=== PATIENT | female | born 1950 | race Caucasian/White ===

== ENCOUNTER → 2018-11-30 | Outpatient (REF) | payer MEDICARE ==
[~2018-11-30] MED LIST: AMLODIPINE5 MG PO; ASPIRIN 81 LOW81 MG PO; ASPIRIN EC81 MG PO; ATORVASTATI80 MG/TAB PO; BUMETANIDE1 MG PO; CARAFATE1 G1 PO; CLONIDINE0.1 MG PO; COREG3.125 MG PO; COUMADIN2.5 MG PO; COUMADIN7.5 MG PO; CYMBALTA60 MG PO; FAMOTIDINE20 M1 PO; FISH OIL1000 MG PO; GABAPENTIN100 MG PO; GABAPENTIN300 MG PO; HYDROCHLORO25 MG/TAB PO; LASIX 20 MG20 MG/TAB PO; LEVEMIR FL100 UNIT/M SC; LEVOTHYROXIN125 MCG PO; LEVOTHYROXIN150 MCG PO; LEVOTHYROXIN75 MCG PO; LISINOPRIL20 MG PO; LISINOPRIL5 MG PO; LOSARTAN POTASS50 MG PO; MELOXICAM15 MG PO; METFORMIN500 MG PO; MIDODRINE HCL5 MG PO; NOVOLIN 70/30 SC; NOVOLIN R U-1001 ML; NOVOLOG MIX100 U/ML SC; POT CHLORIDE8 ME1 PO; PRAVASTATIN40 MG PO; PRILOSEC20 MG PO; SANTYL250 MG/GM TOP; SPIRONOLACT25 MG PO; TUMS ULTRA 101000 MG PO; VISTARIL PO; ZESTRIL10 M1 PO; [UNRECOGNIZED DRUG - CODE] PO; [UNRECOGNIZED DRUG - OTHER] IV
[2018-11-30 16:26] LABS: IMMATURE GRANULOCYTES 0.3 % (0.0-5.0); MEAN CELL VOLUME 105.7 fL CALC (80.0-100.0); MEAN CORPUSCULAR HGB 34.3 pG CALC (26.0-32.0); MEAN CORPUSCULAR HGB CONC 32.4 g/L CALC (32.0-36.0); NEUT# 4.67 thou/uL (2.00-7.15); RED BLOOD COUNT 3.5 mill/uL (4.20-5.60); RED CELL DISTRI WIDTH 14.1 % (11.5-15.5)
[2018-11-30 16:49] LABS: PROTHROMBIN TIME 10.7 SECONDS (9.0-12.5)
[2018-11-30 16:51] LABS: ALBUMIN 3.7 g/dL (3.2-5.0); BILIRUBIN, TOTAL 0.7 mg/dL (0.0-1.4); POTASSIUM 4.2 mmol/l (3.5-5.1); TOTAL PROTEIN 6.8 g/dL (6.3-8.2)
[2018-11-30 17:01] LABS: CREATININE 6.4 mg/dL (0.5-1.0)
== END | disposition home or self-care (01) ==
LOC: LAB 15:39
PROVIDERS: ATTEND Internal Medicine Cardiovascular Disease
DX: I25.119 Atherosclerotic heart disease of native coronary artery with unspecified angina pectoris (principal)

== ENCOUNTER 2018-12-01 02:57 | Observation (INO) | payer MEDICARE ==
[~2018-12-01] VITALS: Ht 170.2 cm; Wt 95.5 kg
[~2018-12-01 02:57] MED LIST changes: -AMLODIPINE5 MG PO; -FAMOTIDINE20 M1 PO; -FISH OIL1000 MG PO; -LOSARTAN POTASS50 MG PO; -TUMS ULTRA 101000 MG PO
--- NOTE | 2018-12-01 03:00 | NUR ---
PATIENT BROUGHT IMMEDIATELY TO TREATMENT AREA VIA WHEELCHAIR. UNDRESSED INTO A GOWN, PLACED ON MONITOR. TRIAGE COMPLETED AT BEDSIDE. PATIENT C/O MID STERNAL CHEST PAIN THAT RADIATES TO HER RIGHT CHEST AT TIMES AND IS WORSE WHEN SHE TAKES A DEEP BREATH. STATES SHE IS SCHEDULED FOR A CATH THIS COMING WEEK BECAUSE OF AN ABNORMAL STRESS TEST. PATIENT DENIES PAIN, DESCRIBES A TIGHTNESS, AND PRESSURE.
[2018-12-01] MEDS ORDERED: TUMS ULTRA 101000 MG PO (03:23)
[2018-12-01] MEDS ORDERED: LOSARTAN POTASS50 MG PO (03:24)
[2018-12-01] MEDS ORDERED: FISH OIL1000 MG PO (03:24)
[2018-12-01] MEDS ORDERED: FAMOTIDINE20 M1 PO (03:25)
[2018-12-01] MEDS ORDERED: AMLODIPINE5 MG PO (03:25)
[2018-12-01 03:44] LABS: HEMATOCRIT 36.8 % (37.0-47.0); HEMOGLOBIN 12.3 g/dl (12.0-16.0); IMMATURE GRANULOCYTES 0.3 % (0.0-5.0); MEAN CELL VOLUME 104.2 fL CALC (80.0-100.0); MEAN CORPUSCULAR HGB 34.8 pG CALC (26.0-32.0); MEAN CORPUSCULAR HGB CONC 33.4 g/L CALC (32.0-36.0); NEUT# 4.11 thou/uL (2.00-7.15); RED BLOOD COUNT 3.53 mill/uL (4.20-5.60); RED CELL DISTRI WIDTH 13.9 % (11.5-15.5)
--- NOTE | 2018-12-01 03:45 | NUR ---
PATIENT RESTING ON STRETCHER. DENIES ANY CHEST PAIN AT PRESENT. AWARE OF PENDING RESULTS AND PLAN OF CARE. FAMILY AT [facility].
[2018-12-01 03:51] LABS: ALBUMIN 3.5 g/dL (3.2-5.0); BILIRUBIN, TOTAL 0.6 mg/dL (0.0-1.4); POTASSIUM 3.9 mmol/l (3.5-5.1); TOTAL PROTEIN 6.5 g/dL (6.3-8.2)
[2018-12-01 03:52] LABS: CREATININE 6.9 mg/dL (0.5-1.0)
--- NOTE | 2018-12-01 04:18 | NUR ---
PATIENT AWARE OF NEED FOR URINE SAMPLE. STATES SHE DOES MAKE URINE WHILE ON DIALYSIS, HOWEVER HAS NO URGE TO GO AT THIS TIME. MD AWARE.
--- NOTE | 2018-12-01 04:30 | NUR ---
SPOKE WITH DR RESENDEZ. PATIENT TO BE ADMITTED
--- NOTE | 2018-12-01 04:53 | NUR ---
REPORT ATTEMPTED, NURSE TO CALL BACK.
--- NOTE | 2018-12-01 05:04 | NUR ---
REPORT GIVEN TO VASQUEZ. PATIENT READIED FOR TRANSPORT TO FLOOR.
--- NOTE | 2018-12-01 05:10 | NUR ---
PATIENT TO THE FLOOR ONT TELEMETRY, WITH RN, VIA STRETCHER. FAMILY FOLLOWED TO FLOOR.
--- NOTE | 2018-12-01 05:18 | NUR ---
PT ARIVED TO THE FLOOR VIA STRETCHER ACCOMPANIED BY ED STAFF AND FAMILY. PT ALERT AND ORIENTED. PT AMULATED FROM STRETCHER TO BED X2 ASSIST, WEAK. PT DENIES ANY PAIN OR DISCOMFORT AT THIS TIME. RESPIRATIONS EVEN AND UNLABORED ON RA, LUNGS SOUND CLEAR. PEDAL PULSES WEAK. TELE MONITOR IN PLACE. IV # 22 LFA, PATENT, APPEARS HEALTHY. AV FISSULA UPPER RIGHT ARM POSITIVE BRUIT POSITIVE THRILL. PT ORIENTED TO ROOM AND CALL [facility] SYSTEM. PT ENCOURAGED TO USE CALL [facility] IF NEEDS SHOULD ARISE. SAFETY PRECAUTIONS IN PLACE. WILL CONTINUE TO MONITOR.
--- NOTE | 2018-12-01 05:25 | NUR ---
PATIENT APPEARS SLEEPING AT THIS TIME. EYES CLOSED AND HOB ELEVATED. TELE MONITOR IN PLACE. CALL LIGHT IN REACH. WILL CONT TO MONITOR.
[2018-12-01 05:30] VITALS: BP 161/73
--- NOTE | 2018-12-01 05:36 | NUR ---
PATIENT RESTING IN BED AND STATES THAT SHE IS SCHEDULED FOR PICK-UP FOR H/D TREATMENT THIS MORNING AT [facility] IN [place]-US[place]ALLY GETS PICKED UP AT ABOUT 6:30. NURA CALLED AT [phone] AND SPOKE TO DALIA INMANING PATIENT ADMISSION TO [facility]. WILL CONT TO MONITOR.
[2018-12-01 07:36] VITALS: BP 149/87
--- NOTE | 2018-12-01 08:15 | NUR ---
DR. RESENDEZ AT BEDSIDE DISCUSS POC. WITH PT AND DAUGHTER. ASSESSMENT DONE. PT IS A&O X3. PT DENIES ANY PAIN AT THIS TIME. FISSULA +BRUIT AND + THRILL. RESPS EVEN AND UNLABORED. TELE IN PLACE. SAFETY PRECAUTIONS REINFORCED AND CALL LIGHT IN REACH.
[2018-12-01] MEDS ORDERED: GABAPENTIN100 MG PO (10:38)
[2018-12-01] MEDS ORDERED: SPIRONOLACT25 MG PO (10:38)
[2018-12-01] MEDS ORDERED: [UNRECOGNIZED DRUG - OTHER] IV (10:38)
[2018-12-01] MEDS ORDERED: BUMETANIDE1 MG PO (10:39)
[2018-12-01 11:52] VITALS: BP 139/72
--- NOTE | 2018-12-01 11:57 | NUR ---
Discharge instructions given. Patient verbalizes understanding of same. Discharged in stable condition via Wheelchair to Home with family. All belongings sent with pt.
== END 2018-12-01 11:57 | disposition home or self-care (01) ==
LOC: ED 02:57 → ED-I 04:21 → ED 04:28 → MS2 04:29
PROVIDERS: Emergency Medicine; ADMIT Internal Medicine Geriatric Medicine; ATTEND Internal Medicine Geriatric Medicine
DX: R07.9 Chest pain, unspecified (principal); I25.10 Atherosclerotic heart disease of native coronary artery without angina pectoris; I12.0 Hypertensive chronic kidney disease with stage 5 chronic kidney disease or end stage renal disease; N18.6 End stage renal disease; F32.9 Major depressive disorder, single episode, unspecified; F41.8 Other specified anxiety disorders; R94.31 Abnormal electrocardiogram [ECG] [EKG]; Z99.2 Dependence on renal dialysis; Z95.1 Presence of aortocoronary bypass graft; R06.02 Shortness of breath
CPT/HCPCS: G0378

== ENCOUNTER 2019-06-25 08:24 | Emergency (ER) | payer MEDICARE ==
[~2019-06-25] VITALS: Ht 170.2 cm; Wt 100.0 kg
[~2019-06-25 08:24] MED LIST changes: +AMLODIPINE5 MG PO; +FAMOTIDINE20 M1 PO; +FISH OIL1000 MG PO; +LOSARTAN POTASS50 MG PO; +TUMS ULTRA 101000 MG PO
[2019-06-25 09:54] LABS: IMMATURE GRANULOCYTES 0.5 % (0.0-5.0); MEAN CELL VOLUME 102.7 fL CALC (80.0-100.0); MEAN CORPUSCULAR HGB 32.7 pG CALC (26.0-32.0); MEAN CORPUSCULAR HGB CONC 31.9 g/L CALC (32.0-36.0); NEUT# 3.89 thou/uL (2.00-7.15); RED BLOOD COUNT 2.63 mill/uL (4.20-5.60); RED CELL DISTRI WIDTH 15.9 % (11.5-15.5)
[2019-06-25 10:10] LABS: ACT PARTIAL THROMBO TIME 25.5 SECONDS (20.0-32.5); INTERNATIONAL NORMALIZED RATIO 1.1 RATIO (0.7-1.3); PROTHROMBIN TIME 11.5 SECONDS (9.0-12.5)
[2019-06-25 10:12] LABS: BILIRUBIN, TOTAL 0.9 mg/dL (0.0-1.4); HEMOGLOBIN 8.6 g/dl (12.0-16.0); POTASSIUM 3.9 mmol/l (3.5-5.1); TOTAL PROTEIN 6.7 g/dL (6.3-8.2)
[2019-06-25 10:13] LABS: ALBUMIN 2.5 g/dL (3.2-5.0); CREATININE 3.3 mg/dL (0.5-1.0)
[2019-06-25] MEDS ORDERED: SERTRALINE50 MG PO (10:54)
[2019-06-25 13:30] VITALS: BP 134/65
== END 2019-06-25 13:30 ==
LOC: ED 08:24
DX: R42 Dizziness and giddiness (principal); R55 Syncope and collapse; R79.89 Other specified abnormal findings of blood chemistry; I48.91 Unspecified atrial fibrillation; D64.9 Anemia, unspecified; I12.0 Hypertensive chronic kidney disease with stage 5 chronic kidney disease or end stage renal disease; N18.6 End stage renal disease; I25.10 Atherosclerotic heart disease of native coronary artery without angina pectoris; Z99.2 Dependence on renal dialysis; Z95.1 Presence of aortocoronary bypass graft

== ENCOUNTER 2020-03-15 13:49 | Emergency (ER) | payer MEDICARE ==
[~2020-03-15] VITALS: Ht 170.2 cm; Wt 80.0 kg
[~2020-03-15 13:49] MED LIST changes: +SERTRALINE50 MG PO
[2020-03-15] MEDS ORDERED: NORVASC5 M1 PO (14:11)
[2020-03-15 14:28] LABS: IMMATURE GRANULOCYTES 0.3 % (0.0-5.0); MEAN CELL VOLUME 110.9 fL CALC (80.0-100.0); MEAN CORPUSCULAR HGB 33.9 pG CALC (26.0-32.0); MEAN CORPUSCULAR HGB CONC 30.6 g/dL CAL (32.0-36.0); NEUT# 3.29 thou/uL (2.00-7.15); RED BLOOD COUNT 2.21 mill/uL (4.20-5.60); RED CELL DISTRI WIDTH 14.6 % (11.5-15.5)
[2020-03-15 14:39] LABS: HEMATOCRIT 24.5 % (37.0-47.0); HEMOGLOBIN 7.5 g/dl (12.0-16.0)
[2020-03-15 14:45] LABS: INTERNATIONAL NORMALIZED RATIO 1.1 RATIO (0.7-1.3); PROTHROMBIN TIME 11.4 SECONDS (9.0-12.5)
[2020-03-15 14:46] LABS: ALBUMIN 2.6 g/dL (3.2-5.0); ALKALINE PHOSPHATASE 159 u/l (38-126); ANION GAP 9 (6-22 (CALC)); BILIRUBIN, TOTAL 0.6 mg/dL (0.0-1.4); BUN 27 mg/dL (8-23); BUN/CREATININE RATIO 8 (12-20 (CALC)); CARBON DIOXIDE 26 mmol/l (22-30); CHLORIDE 103 mmol/l (95-108); CREATININE 3.4 mg/dL (0.5-1.0); GFR 13 ML/MIN (>=60 (CALC)); GFR FOR AFR.AMER. 16 ML/MIN (>=60 (CALC)); LIPASE 661 u/l (23-300); POTASSIUM 4.3 mmol/l (3.5-5.1); SGOT/AST 25 u/l (9-36); SODIUM 134 mmol/l (137-146); TOTAL PROTEIN 5.8 g/dL (6.3-8.2)
[2020-03-15 14:47] LABS: AMYLASE < 30 u/l (30-110)
[2020-03-15 18:20] VITALS: BP 170/76
== END 2020-03-15 18:20 ==
LOC: ED 13:49
PROVIDERS: Emergency Medicine
DX: J18.9 Pneumonia, unspecified organism (principal); K50.10 Crohn's disease of large intestine without complications; R60.1 Generalized edema; D64.9 Anemia, unspecified; I12.0 Hypertensive chronic kidney disease with stage 5 chronic kidney disease or end stage renal disease; N18.6 End stage renal disease; I25.10 Atherosclerotic heart disease of native coronary artery without angina pectoris; Z99.2 Dependence on renal dialysis; Z95.1 Presence of aortocoronary bypass graft; Z20.828 Contact with and (suspected) exposure to other viral communicable diseases
CPT/HCPCS: J1956

== ENCOUNTER 2020-05-01 19:54 | Emergency (ER) | payer MEDICARE ==
[~2020-05-01] VITALS: Ht 170.2 cm; Wt 91.0 kg
[~2020-05-01 19:54] MED LIST changes: +NORVASC5 M1 PO
[2020-05-01] MEDS ORDERED: LEVOTHYROXIN125 MCG PO (20:11)
[2020-05-01 20:36] LABS: HEMATOCRIT 22.2 % (37.0-47.0); IMMATURE GRANULOCYTES 1.2 % (0.0-5.0); MEAN CORPUSCULAR HGB 30.7 pG CALC (26.0-32.0); MEAN CORPUSCULAR HGB CONC 29.7 g/dL CAL (32.0-36.0); NEUT# 15.53 thou/uL (2.00-7.15); RED BLOOD COUNT 2.15 mill/uL (4.20-5.60); RED CELL DISTRI WIDTH 15.3 % (11.5-15.5)
[2020-05-01 20:38] LABS: HEMOGLOBIN 6.6 g/dl (12.0-16.0); MEAN CELL VOLUME 103.3 fL CALC (80.0-100.0)
[2020-05-01 20:52] LABS: ALBUMIN 2.6 g/dL (3.2-5.0); ALKALINE PHOSPHATASE 158 u/l (38-126); ANION GAP 10 (6-22 (CALC)); BUN 30 mg/dL (8-23); BUN/CREATININE RATIO 8 (12-20 (CALC)); CARBON DIOXIDE 26 mmol/l (22-30); CHLORIDE 101 mmol/l (95-108); CREATININE 3.7 mg/dL (0.5-1.0); GFR 12 ML/MIN (>=60 (CALC)); GFR FOR AFR.AMER. 15 ML/MIN (>=60 (CALC)); LIPASE 34 u/l (23-300); POTASSIUM 3.7 mmol/l (3.5-5.1); SGOT/AST 22 u/l (9-36); SODIUM 134 mmol/l (137-146); TOTAL PROTEIN 5.6 g/dL (6.3-8.2)
[2020-05-01 20:53] LABS: AMYLASE < 30 u/l (30-110); BILIRUBIN, TOTAL 0.9 mg/dL (0.0-1.4)
[2020-05-01 20:56] LABS: ACT PARTIAL THROMBO TIME 28.6 SECONDS (20.0-32.5); INTERNATIONAL NORMALIZED RATIO 1.1 RATIO (0.7-1.3); PROTHROMBIN TIME 11.2 SECONDS (9.0-12.5)
[2020-05-01 22:40] VITALS: BP 87/48
[2020-05-01 23:18] VITALS: BP 87/48
== END 2020-05-01 23:18 ==
LOC: ED 19:54
PROC: 30233N1 Transfusion of Nonautologous Red Blood Cells into Peripheral Vein, Percutaneous Approach (ICD-10-PCS; principal; 2020-05-01)
DX: A41.9 Sepsis, unspecified organism (principal); L03.116 Cellulitis of left lower limb; L03.115 Cellulitis of right lower limb; R79.89 Other specified abnormal findings of blood chemistry; D64.9 Anemia, unspecified; I87.2 Venous insufficiency (chronic) (peripheral); I12.0 Hypertensive chronic kidney disease with stage 5 chronic kidney disease or end stage renal disease; N18.6 End stage renal disease; I25.10 Atherosclerotic heart disease of native coronary artery without angina pectoris; B95.62 Methicillin resistant Staphylococcus aureus infection as the cause of diseases classified elsewhere; Z99.2 Dependence on renal dialysis; Z95.1 Presence of aortocoronary bypass graft; Z20.828 Contact with and (suspected) exposure to other viral communicable diseases
CPT/HCPCS: P9016

== ENCOUNTER 2020-09-09 18:42 | Emergency (ER) | payer MEDICARE ==
[~2020-09-09] VITALS: Ht 167.6 cm; Wt 85.0 kg
[2020-09-09] MEDS ORDERED: PEPCID20 MG PO (21:46)
[2020-09-09] MEDS ORDERED: VITAMIN D32000 UNI2 PO (21:49)
[2020-09-09] MEDS ORDERED: Levaquin PO (22:27)
[2020-09-09 22:42] LABS: IMMATURE GRANULOCYTES 0.2 % (0.0-5.0); MEAN CELL VOLUME 99.1 fL CALC (80.0-100.0); MEAN CORPUSCULAR HGB 30.9 pG CALC (26.0-32.0); MEAN CORPUSCULAR HGB CONC 31.1 g/dL CAL (32.0-36.0); NEUT# 8.63 thou/uL (2.00-7.15); RED BLOOD COUNT 3.37 mill/uL (4.20-5.60); RED CELL DISTRI WIDTH 15.8 % (11.5-15.5)
[2020-09-09 22:52] LABS: HEMATOCRIT 33.4 % (37.0-47.0); HEMOGLOBIN 10.4 g/dl (12.0-16.0)
[2020-09-09] MEDS ORDERED: TAM75CAP PO (23:10)
[2020-09-09 23:24] LABS: CREATININE 4.3 mg/dL (0.5-1.0); TOTAL PROTEIN 6.3 g/dL (6.3-8.2)
[2020-09-09 23:35] LABS: BILIRUBIN, TOTAL 1.3 mg/dL (0.0-1.4); POTASSIUM 4.5 mmol/l (3.5-5.1)
[2020-09-10 01:08] VITALS: BP 176/74
--- NOTE | 2020-09-11 09:08 | NUR ---
Notified patient of positive Covid results. Patient denies any symptoms at this time. Advised her to quarantine until contacted by the [facility] with further instructions. Advised her to return to the ED with any difficulty breathing or other urgent needs. patient verbalized understanding.
== END 2020-09-10 01:08 | disposition left against medical advice (07) ==
LOC: ED 18:42
PROVIDERS: Emergency Medicine
DX: U07.1 COVID-19 (principal); J12.89 Other viral pneumonia; N18.6 End stage renal disease; I12.0 Hypertensive chronic kidney disease with stage 5 chronic kidney disease or end stage renal disease; I25.10 Atherosclerotic heart disease of native coronary artery without angina pectoris; Z99.2 Dependence on renal dialysis; Z95.1 Presence of aortocoronary bypass graft

== ENCOUNTER 2020-09-24 11:53 | Emergency (ER) | payer MEDICARE ==
[~2020-09-24] VITALS: Ht 167.6 cm; Wt 75.0 kg
[~2020-09-24 11:53] MED LIST changes: +Levaquin PO; +PEPCID20 MG PO; +TAM75CAP PO; +VITAMIN D32000 UNI2 PO
[2020-09-24 13:12] LABS: HEMATOCRIT 36.3 % (37.0-47.0); HEMOGLOBIN 11.1 g/dl (12.0-16.0); IMMATURE GRANULOCYTES 0.3 % (0.0-5.0); MEAN CELL VOLUME 101.7 fL CALC (80.0-100.0); MEAN CORPUSCULAR HGB 31.1 pG CALC (26.0-32.0); MEAN CORPUSCULAR HGB CONC 30.6 g/dL CAL (32.0-36.0); NEUT# 4.63 thou/uL (2.00-7.15); RED BLOOD COUNT 3.57 mill/uL (4.20-5.60); RED CELL DISTRI WIDTH 16.4 % (11.5-15.5)
[2020-09-24 13:24] LABS: ALBUMIN 2.8 g/dL (3.2-5.0); BILIRUBIN, TOTAL 1.3 mg/dL (0.0-1.4); POTASSIUM 3.7 mmol/l (3.5-5.1)
[2020-09-24 13:25] LABS: CREATININE 2.3 mg/dL (0.5-1.0)
[2020-09-24 17:20] VITALS: BP 126/79
== END 2020-09-24 17:20 | disposition left against medical advice (07) ==
LOC: ED 11:53
PROVIDERS: Emergency Medicine
DX: R79.89 Other specified abnormal findings of blood chemistry (principal); I12.0 Hypertensive chronic kidney disease with stage 5 chronic kidney disease or end stage renal disease; N18.6 End stage renal disease; I25.10 Atherosclerotic heart disease of native coronary artery without angina pectoris; Z99.2 Dependence on renal dialysis; Z91.19 Patient's noncompliance with other medical treatment and regimen

== ENCOUNTER 2020-12-10 14:56 | Emergency (ER) | payer MEDICARE ==
[~2020-12-10] VITALS: Ht 167.6 cm; Wt 82.0 kg
[2020-12-10] MEDS ORDERED: D31000 UNIT PO (15:35)
[2020-12-10 16:21] LABS: HEMATOCRIT 31.5 % (37.0-47.0); HEMOGLOBIN 9.8 g/dl (12.0-16.0); IMMATURE GRANULOCYTES 0.4 % (0.0-5.0); MEAN CELL VOLUME 102.6 fL CALC (80.0-100.0); MEAN CORPUSCULAR HGB 31.9 pG CALC (26.0-32.0); MEAN CORPUSCULAR HGB CONC 31.1 g/dL CAL (32.0-36.0); NEUT# 4.56 thou/uL (2.00-7.15); RED BLOOD COUNT 3.07 mill/uL (4.20-5.60); RED CELL DISTRI WIDTH 15.3 % (11.5-15.5)
[2020-12-10 16:38] LABS: ALBUMIN 3.3 g/dL (3.2-5.0); BILIRUBIN, TOTAL 0.8 mg/dL (0.0-1.4); TOTAL PROTEIN 6.7 g/dL (6.3-8.2)
[2020-12-10 16:52] LABS: CREATININE 3.6 mg/dL (0.5-1.0); POTASSIUM 4.7 mmol/l (3.5-5.1)
[2020-12-10 18:12] VITALS: BP 156/73
== END 2020-12-10 18:32 | disposition home or self-care (01) ==
LOC: ED 14:56
PROVIDERS: Family Medicine
DX: J06.9 Acute upper respiratory infection, unspecified (principal); I12.0 Hypertensive chronic kidney disease with stage 5 chronic kidney disease or end stage renal disease; N18.6 End stage renal disease; I25.10 Atherosclerotic heart disease of native coronary artery without angina pectoris; Z95.1 Presence of aortocoronary bypass graft; Z99.2 Dependence on renal dialysis; Z20.822 Contact with and (suspected) exposure to COVID-19

== ENCOUNTER 2021-05-27 14:21 | Emergency (ER) | payer MEDICARE ==
[~2021-05-27] VITALS: Ht 167.6 cm; Wt 80.0 kg
[~2021-05-27 14:21] MED LIST changes: +D31000 UNIT PO
[2021-05-27 18:27] LABS: HEMATOCRIT 32.3 % (37.0-47.0); IMMATURE GRANULOCYTES 0.2 % (0.0-5.0); MEAN CELL VOLUME 102.9 fL CALC (80.0-100.0); MEAN CORPUSCULAR HGB 31.8 pG CALC (26.0-32.0); NEUT# 3.12 thou/uL (2.00-7.15); RED BLOOD COUNT 3.14 mill/uL (4.20-5.60); RED CELL DISTRI WIDTH 17.7 % (11.5-15.5)
[2021-05-27 18:51] LABS: ALBUMIN 2.7 g/dL (3.2-5.0); CREATININE 3.3 mg/dL (0.5-1.0); TOTAL PROTEIN 6.3 g/dL (6.3-8.2)
[2021-05-27 18:52] LABS: BILIRUBIN, TOTAL 1.6 mg/dL (0.0-1.4)
[2021-05-27 20:08] VITALS: BP 167/70
[2021-07-24] MEDS ORDERED: AUGMENTIN500TAB PO (04:44)
== END 2021-05-27 20:37 | disposition home or self-care (01) ==
LOC: ED 14:21
DX: R51.9 Headache, unspecified (principal); R09.81 Nasal congestion; I12.0 Hypertensive chronic kidney disease with stage 5 chronic kidney disease or end stage renal disease; N18.6 End stage renal disease; I25.10 Atherosclerotic heart disease of native coronary artery without angina pectoris; M19.90 Unspecified osteoarthritis, unspecified site; Z99.2 Dependence on renal dialysis

== ENCOUNTER 2021-11-20 10:57 | Inpatient (IN) | payer MEDICARE ==
[2021-11-20] VITALS (10 sets, daily range): BP systolic 100–132; BP diastolic 46–67
[~2021-11-20] VITALS: Ht 167.6 cm; Wt 85.0 kg
[~2021-11-20 10:57] MED LIST changes: +AUGMENTIN500TAB PO; +LEVOTHYROXIN137 MCG PO
--- NOTE | 2021-11-20 11:15 | NUR ---
PATIENT TO ROOM VIA WHEELCHAIR.
[2021-11-20 12:04] LABS: IMMATURE GRANULOCYTES 0.7 % (0.0-5.0); MEAN CELL VOLUME 105.8 fL CALC (80.0-100.0); MEAN CORPUSCULAR HGB 32.8 pG CALC (26.0-32.0); NEUT# 5.09 thou/uL (2.00-7.15); RED BLOOD COUNT 1.89 mill/uL (4.20-5.60); RED CELL DISTRI WIDTH 19.9 % (11.5-15.5)
[2021-11-20 12:05] LABS: HEMOGLOBIN 6.2 g/dl (12.0-16.0)
[2021-11-20 12:27] LABS: ALBUMIN 2.4 g/dL (3.2-5.0); ALKALINE PHOSPHATASE 135 u/l (38-126); BILIRUBIN, TOTAL 1.2 mg/dL (0.0-1.4); BUN 12 mg/dL (8-23); CHLORIDE 102 mmol/l (95-108); POTASSIUM 4.3 mmol/l (3.5-5.1); SODIUM 131 mmol/l (137-146)
[2021-11-20 12:28] LABS: ANION GAP 8 (6-22 (CALC)); BUN/CREATININE RATIO 6 (12-20 (CALC)); CARBON DIOXIDE 25 mmol/l (22-30); CREATININE 2.1 mg/dL (0.5-1.0); GFR 23 ML/MIN (>=60 (CALC)); GFR FOR AFR.AMER. 28 ML/MIN (>=60 (CALC)); SGOT/AST 40 u/l (9-36)
--- NOTE | 2021-11-20 15:03 | NUR ---
PT REFUSING CATH AT THIS TIME
[2021-11-20 18:30] LABS: HEMATOCRIT 21.5 % (37.0-47.0); MEAN CELL VOLUME 100.9 fL CALC (80.0-100.0); MEAN CORPUSCULAR HGB 31.9 pG CALC (26.0-32.0); MEAN CORPUSCULAR HGB CONC 31.6 g/dL CAL (32.0-36.0); RED BLOOD COUNT 2.13 mill/uL (4.20-5.60); RED CELL DISTRI WIDTH 21.2 % (11.5-15.5)
[2021-11-20 18:32] LABS: HEMOGLOBIN 6.8 g/dl (12.0-16.0)
--- NOTE | 2021-11-20 19:54 | NUR ---
PT RESTING COMFORTABLY RECIEVING IV MEDICATIONS, WILL CONT TO MONITOR.
--- NOTE | 2021-11-20 20:28 | NUR ---
REPORT RECEIVED FROM Ann-Marie VALENCIA RN PENDING 1 UNIT OF PRBC, PT HAS ONE #22 IN HAND WHICH CURRENTLY HAS VANCOMYCIN THROUGH IT. 2ND UNIT OF PRBC PENDING, PER REPORT ATTEMPT AT 2ND SITE WHILE WE SPEAK.
--- NOTE | 2021-11-20 20:31 | NUR ---
REPORT CALLED TO MED/SURG.
--- NOTE | 2021-11-20 20:50 | NUR ---
PT RECEIVED FROM ED TO ROOM 270. ARRIVES VIA WC ACCOMPANIED BY BRAN GARG. PT AMBULATORY TO BED. GAIT UNSTEADY. PT DENIES PAIN AT THIS TIME. ORIENTED TO UNIT, ROOM, CALL [facility], LIGHTS, TV. ICE WATER PROVIDED. CALL [facility] WITHIN REACH. AGREES TO CALL PRN.
--- NOTE | 2021-11-20 21:01 | NUR ---
PT OFF UNIT TO MEDR VIA STRETCHER BY ED STAFF.
[2021-11-21 00:49] LABS: HEMATOCRIT 26.4 % (37.0-47.0); HEMOGLOBIN 8.6 g/dl (12.0-16.0)
[2021-11-21 01:03] VITALS: BP 112/40
--- NOTE | 2021-11-21 03:56 | NUR ---
PT LAYING IN BED WITH EYES CLOSED, APPEARS TO BE SLEEPING, APPEARS COMFORTABLE AND IN NO DISTRESS. RESPIRATIONS REGULAR AND UNLABORED. ITEMS REMAIN WITHIN REACH, CALL [facility] REMAINS WITHIN REACH. BED REMAINS LOCKED AND IN LOW POSITION WITH BEDRAILS UP X2. WILL CONTINUE TO MONITOR.
[2021-11-21 04:22] VITALS: BP 146/48
[2021-11-21 05:55] LABS: HEMATOCRIT 25.5 % (37.0-47.0); HEMOGLOBIN 8.2 g/dl (12.0-16.0); MEAN CELL VOLUME 98.5 fL CALC (80.0-100.0); MEAN CORPUSCULAR HGB 31.7 pG CALC (26.0-32.0); MEAN CORPUSCULAR HGB CONC 32.2 g/dL CAL (32.0-36.0); RED BLOOD COUNT 2.59 mill/uL (4.20-5.60); RED CELL DISTRI WIDTH 21.8 % (11.5-15.5)
[2021-11-21 06:13] LABS: CREATININE 2.9 mg/dL (0.5-1.0)
[2021-11-21 06:23] LABS: ALBUMIN 1.9 g/dL (3.2-5.0)
[2021-11-21 08:33] VITALS: BP 146/48
--- NOTE | 2021-11-21 10:43 | NUR ---
RECEIVE THIS MORNING REPORT FROM ASIF GARG. PATIENT STABLE, NO REPORT PAIN OR DISCONFORT AT THIS TIME. EDUCATED ABOUT PLAN OF CARE FOR TODAY, MEDICATIONS AND CLINIAL MANAGEMENT. PATIENT REPORT UNDERSTAND. JOEY ROUND IS DONE
[2021-11-21 11:20] VITALS: BP 136/60
[2021-11-21 15:27] VITALS: BP 162/72
--- NOTE | 2021-11-21 15:43 | NUR ---
PATIENT STABLE AT THIS TIME. NO REPORT PAIN.JOEY POOLE IS COMPLETE.
[2021-11-21 19:00] VITALS: BP 118/52
--- NOTE | 2021-11-21 20:15 | NUR ---
PT IN BED; A&O X3. EVEN AND UNLABORED RESPIRATIONS; CLEAR LUNG SOUNDS UPON AUSCULTATION. TELEMETRY IN PLACE. ACTIVE BOWEL SOUNDS X4 QUADRANTS. DRESSING ON BILATERAL EXTREMITIES DRY, CLEAN, AND INTACT. NO DISTRESS NOTED. PT DENIES PAIN AT THIS MOMENT. PT INFORMED ABOUT NPO ORDER AFTER MIDNIGHT; PT SHOWED UNDESTANDING. SAFETY PRECAUTIONS IN PLACE. CALL LIGHT WITHIN REACH.
--- NOTE | 2021-11-21 22:52 | NUR ---
BOWEL PREP ABOUT HALF WAY COMPLETED, NO BM SINCE ADMINISTERING PREP. PT ENCOURAGED TO DRINK BOWEL PREP. PT STATES " THERES NO WAY I CAN DRINK THAT, I AM SO FULL." DR ELAINE INFORMED, NO NEW ORDERS OBTAINED. MUSEUM CURATOR CONTINUES TO ENCOURAGE PT .
[2021-11-22] VITALS: BP 123/47
--- NOTE | 2021-11-22 | NUR ---
PT ENCOURAGED TO DRINK PREP; PT STATES SHE'S FULL BUT SHE WILL TRY. NO BOWEL MOVEMENTS. TELEMETRY IN PLACE. SAFETY PRECAUTIONS IN PLACE. CALL LIGHT WITHIN REACH.
[2021-11-22 04:00] VITALS: BP 115/34
--- NOTE | 2021-11-22 04:30 | NUR ---
PT IN BED. NO DISTRESS OR PAIN NOTED. PT UNABLE TO FINISH PREP. PT HELPED WITH HEATHER CARE BY AIDES. SAFETY PRECAUTIONS AND TELEMETRY IN PLACE. CALL LIGHT WITHIN REACH.
[2021-11-22 04:47] LABS: HEMATOCRIT 24.1 % (37.0-47.0); HEMOGLOBIN 7.7 g/dl (12.0-16.0); MEAN CELL VOLUME 99.6 fL CALC (80.0-100.0); MEAN CORPUSCULAR HGB 31.8 pG CALC (26.0-32.0); RED BLOOD COUNT 2.42 mill/uL (4.20-5.60); RED CELL DISTRI WIDTH 21.6 % (11.5-15.5)
[2021-11-22 05:13] LABS: CREATININE 3.6 mg/dL (0.5-1.0)
[2021-11-22 05:15] LABS: POTASSIUM 4.3 mmol/l (3.5-5.1)
--- NOTE | 2021-11-22 05:30 | NUR ---
PT INCONT OF BOWEL AT THIS TIME. BM BLACK, STOOL SAMPLE COLLECTED. PT UNABLE TO TOLERATE BOWEL PREP WELL. OR AND DR ELAINE TO BE INFORMED. SAMPLE COLLECTED.
--- NOTE | 2021-11-22 06:00 | NUR ---
INFORMED OF BLACK STOOLS. ORDERS TO KEEP NPO AND PROCEED WITH EDG. OR AND PT INFORMED.
--- NOTE | 2021-11-22 06:14 | NUR ---
PT TRANSPORTED TO OR VIA STRETCHER ACCOMPAINED BY BRITANY WRIGHT IN STABLE CONDITION.
--- NOTE | 2021-11-22 07:10 | NUR ---
S: KAYLA HERNÁNDEZ is a 71 F who presents with SSTI. She has a history of hypertension, diabetes mellitus, hypothyroidism, osteoarthritis, end-stage renal disease on dialysis. All medications in patient's chart were reviewed. O: VS: BP 115/34 mmHg, P 74 bpm, RR 17 bpm,T 98.2F W 84.992 kg, HT 167.64 cm, Scr= 3.6,CrCl= 24 ml/min, PT RECEIVES HEMODIALYSIS MWF A: Wound culture is pending P: Patient is on cefepime HCl 1g q24h IV. Vancomycin ordered for pharmacy to dose. Start Vancomycin 1250 mg IV Mon,Wed,Fri after dialysis. Vancomycin trough is drawn at 0800 on 11/25/21 before hemodialysis. Vancomycin goal trough is between 10-15 mcg/ml. Pharmacy will follow and or advise on antibiotics use as needed.
--- NOTE | 2021-11-22 07:31 | NUR ---
RECEIVE REPORT FROM CHANI GARG.
[2021-11-22 08:35] VITALS: BP 115/45
--- NOTE | 2021-11-22 09:40 | NUR ---
PATIENT COME BACK TO OR. POST ENDOSCOPY STABLE. EDUCATE ABOUT DRESSING CHANGE, DIALYSIS AND MEDICATIONS FOR TODAY.
--- NOTE | 2021-11-22 13:28 | NUR ---
Patient resting in bed. Receiving dialisys treatment at this tme.
[2021-11-22] MEDS ORDERED: PROTONIX40 M2 PO (16:35)
[2021-11-22] MEDS ORDERED: VIBRAMYCIN100 M2 PO (16:37)
[2021-11-22] MEDS ORDERED: AUGMENTIN500TAB PO (16:40)
--- NOTE | 2021-11-22 16:54 | NUR ---
AT THE TIME OF DISCHARGE, IT IS AABOUT EDUCATING THE DAUGTHTER REGARDING HOW SKIN CARE AND CORRECT DRESSING CHANGED BUT PATIENT AND DAUGTHER DON'T LET ME APPLY THE CORRECT FORM THE DRESSING. BECAUSE PATIENT REFER SHE NEED DRIVE EVERY DAY. I EXPLAINED TO HER THE IMPORTNCE OF APPLYING THE DRESSING CORRECTLY BUT SHE DID NOT ACCEPT PLACED CORRECTLY.
[2021-11-25 10:16] LABS: C. DIFFICILE TOXIN A&B NEGATIVE (NEGATIVE)
== END 2021-11-22 17:30 | disposition home health service (06) | DRG 377 ==
LOC: ED 10:57 → ED-I 17:40 → ED 18:27 → MS2 18:28
PROVIDERS: Emergency Medicine; Nurse Practitioner; ADMIT Internal Medicine; ATTEND Internal Medicine
PROC: 30233N1 Transfusion of Nonautologous Red Blood Cells into Peripheral Vein, Percutaneous Approach (ICD-10-PCS; principal; 2021-11-20)
PROC: 30233N1 Transfusion of Nonautologous Red Blood Cells into Peripheral Vein, Percutaneous Approach (ICD-10-PCS; 2021-11-20)
PROC: 5A1D70Z Performance of Urinary Filtration, Intermittent, Less than 6 Hours Per Day (ICD-10-PCS; 2021-11-22)
PROC: 0DB68ZX Excision of Stomach, Via Natural or Artificial Opening Endoscopic, Diagnostic (ICD-10-PCS; 2021-11-22)
DX: K29.51 Unspecified chronic gastritis with bleeding (principal); N18.6 End stage renal disease; I12.0 Hypertensive chronic kidney disease with stage 5 chronic kidney disease or end stage renal disease; L03.115 Cellulitis of right lower limb; N25.81 Secondary hyperparathyroidism of renal origin; L97.829 Non-pressure chronic ulcer of other part of left lower leg with unspecified severity; L97.819 Non-pressure chronic ulcer of other part of right lower leg with unspecified severity; I87.2 Venous insufficiency (chronic) (peripheral); K25.4 Chronic or unspecified gastric ulcer with hemorrhage; D50.0 Iron deficiency anemia secondary to blood loss (chronic); E11.22 Type 2 diabetes mellitus with diabetic chronic kidney disease; K44.9 Diaphragmatic hernia without obstruction or gangrene; I25.10 Atherosclerotic heart disease of native coronary artery without angina pectoris; E03.9 Hypothyroidism, unspecified; B95.62 Methicillin resistant Staphylococcus aureus infection as the cause of diseases classified elsewhere; Z99.2 Dependence on renal dialysis; Z95.1 Presence of aortocoronary bypass graft; Z87.11 Personal history of peptic ulcer disease; Z87.891 Personal history of nicotine dependence; Z20.822 Contact with and (suspected) exposure to COVID-19
CPT/HCPCS: G0378; J0692; J3370; P9016; Q5106 EC; S0164

== ENCOUNTER 2022-01-07 11:57 | Emergency (ER) | payer MEDICARE ==
[~2022-01-07] VITALS: Ht 167.6 cm; Wt 97.0 kg
[~2022-01-07 11:57] MED LIST changes: +PROTONIX40 M2 PO; +VIBRAMYCIN100 M2 PO
[2022-01-07 12:03] VITALS: BP 167/61
[2022-01-07 12:32] VITALS: BP 138/62
[2022-01-07 13:00] VITALS: BP 155/59
[2022-01-07 13:11] LABS: HEMATOCRIT 29.7 % (37.0-47.0); HEMOGLOBIN 8.9 g/dl (12.0-16.0); IMMATURE GRANULOCYTES 0.4 % (0.0-5.0); MEAN CORPUSCULAR HGB 34.4 pG CALC (26.0-32.0); NEUT# 3.48 thou/uL (2.00-7.15); RED BLOOD COUNT 2.59 mill/uL (4.20-5.60); RED CELL DISTRI WIDTH 16.9 % (11.5-15.5)
[2022-01-07 13:24] LABS: MEAN CELL VOLUME 114.7 fL CALC (80.0-100.0)
[2022-01-07 13:26] LABS: CREATININE 3.8 mg/dL (0.5-1.0); POTASSIUM 5.1 mmol/l (3.5-5.1)
[2022-01-07 13:30] VITALS: BP 140/116
[2022-01-07 14:01] VITALS: BP 149/69
[2022-01-07] MEDS ORDERED: KEFLEX500 MG PO (14:10)
[2022-01-07 14:19] VITALS: BP 149/69
== END 2022-01-07 14:24 | disposition home or self-care (01) ==
LOC: ED 11:57
PROVIDERS: Nurse Practitioner
DX: L03.116 Cellulitis of left lower limb (principal); E11.621 Type 2 diabetes mellitus with foot ulcer; L97.529 Non-pressure chronic ulcer of other part of left foot with unspecified severity; I12.0 Hypertensive chronic kidney disease with stage 5 chronic kidney disease or end stage renal disease; E11.22 Type 2 diabetes mellitus with diabetic chronic kidney disease; N18.6 End stage renal disease; Z99.2 Dependence on renal dialysis; Z95.1 Presence of aortocoronary bypass graft; I25.10 Atherosclerotic heart disease of native coronary artery without angina pectoris; Z89.422 Acquired absence of other left toe(s); L97.524 Non-pressure chronic ulcer of other part of left foot with necrosis of bone; L97.523 Non-pressure chronic ulcer of other part of left foot with necrosis of muscle; L97.514 Non-pressure chronic ulcer of other part of right foot with necrosis of bone; L97.513 Non-pressure chronic ulcer of other part of right foot with necrosis of muscle; I73.9 Peripheral vascular disease, unspecified; R23.4 Changes in skin texture; S99.922A Unspecified injury of left foot, initial encounter

== ENCOUNTER 2022-02-12 12:10 | Emergency (ER) | payer MEDICARE ==
[2022-02-12] VITALS (12 sets, daily range): BP systolic 114–182; BP diastolic 44–68
[~2022-02-12] VITALS: Ht 167.6 cm; Wt 84.0 kg
[~2022-02-12 12:10] MED LIST changes: +KEFLEX500 MG PO
[2022-02-12 12:59] LABS: HEMATOCRIT 38.5 % (37.0-47.0); HEMOGLOBIN 11.7 g/dl (12.0-16.0); IMMATURE GRANULOCYTES 0.5 % (0.0-5.0); MEAN CELL VOLUME 109.7 fL CALC (80.0-100.0); MEAN CORPUSCULAR HGB 33.3 pG CALC (26.0-32.0); MEAN CORPUSCULAR HGB CONC 30.4 g/dL CAL (32.0-36.0); NEUT# 9.04 thou/uL (2.00-7.15); RED BLOOD COUNT 3.51 mill/uL (4.20-5.60); RED CELL DISTRI WIDTH 15.6 % (11.5-15.5)
[2022-02-12 13:39] LABS: ANION GAP 11 (6-22 (CALC)); BILIRUBIN, TOTAL 1.1 mg/dL (0.0-1.4); CARBON DIOXIDE 25 mmol/l (22-30); CHLORIDE 102 mmol/l (95-108); POTASSIUM 4.6 mmol/l (3.5-5.1); SGOT/AST 45 u/l (9-36); SODIUM 133 mmol/l (137-146); TOTAL PROTEIN 6.6 g/dL (6.3-8.2)
[2022-02-12 13:42] LABS: ALBUMIN 3.1 g/dL (3.2-5.0); ALKALINE PHOSPHATASE 245 u/l (38-126); BUN 16 mg/dL (8-23); BUN/CREATININE RATIO 6 (12-20 (CALC)); CREATININE 2.5 mg/dL (0.5-1.0); GFR 19 ML/MIN (>=60 (CALC)); GFR FOR AFR.AMER. 23 ML/MIN (>=60 (CALC))
[2022-02-12 13:45] LABS: URINE BLOOD DIPSTICK NEGATIVE (NEGATIVE); URINE COLOR YELLOW; URINE GLUCOSE - DIPSTICK NEGATIVE (NEGATIVE); URINE KETONE TRACE mg/dL (NEGATIVE); URINE LEUK ESTERASE NEGATIVE (NEGATIVE); URINE PH 5.5 (4.5-8.0); URINE PROTEIN - DIPSTICK 30 mg/dL (NEG-TRACE); URINE UROBILINOGEN - DIPSTICK 0.2 E.U./dL (0.2)
[2022-02-12 13:52] LABS: URINE BILIRUBIN - DIPSTICK SMALL (NEGATIVE); URINE NITRITE - DIPSTICK NEGATIVE (Negative)
[2022-02-12 13:57] LABS: URINE AMORPH SEDIMENT FEW hpf (NONE-FEW); URINE SQUAMOUS EPITHELIAL CELL FEW EPI/hpf (0-FEW); URINE TRANSITIONAL EPI. CELLS FEW hpf; URINE WBC 0-2 WBC/hpf (0-5)
[2022-02-12 13:58] LABS: URINE HYALINE CAST FEW lpf (NONE-RARE)
== END 2022-02-12 16:01 | disposition home or self-care (01) ==
LOC: ED 12:10
PROVIDERS: Family Medicine
DX: R53.1 Weakness (principal); H53.8 Other visual disturbances; I12.0 Hypertensive chronic kidney disease with stage 5 chronic kidney disease or end stage renal disease; E11.22 Type 2 diabetes mellitus with diabetic chronic kidney disease; N18.6 End stage renal disease; Z99.2 Dependence on renal dialysis; F32.A Depression, unspecified; E03.9 Hypothyroidism, unspecified; I25.10 Atherosclerotic heart disease of native coronary artery without angina pectoris; Z95.1 Presence of aortocoronary bypass graft

== ENCOUNTER 2022-02-18 12:24 | Emergency (ER) | payer MEDICARE ==
[2022-02-18] VITALS (20 sets, daily range): BP systolic 127–160; BP diastolic 53–138
[~2022-02-18] VITALS: Ht 167.6 cm; Wt 90.9 kg
[2022-02-18 13:10] LABS: HEMATOCRIT 36.8 % (37.0-47.0); HEMOGLOBIN 11.4 g/dl (12.0-16.0); IMMATURE GRANULOCYTES 1.5 % (0.0-5.0); MEAN CELL VOLUME 107.3 fL CALC (80.0-100.0); MEAN CORPUSCULAR HGB 33.2 pG CALC (26.0-32.0); NEUT# 17.26 thou/uL (2.00-7.15); RED BLOOD COUNT 3.43 mill/uL (4.20-5.60); RED CELL DISTRI WIDTH 15.9 % (11.5-15.5)
[2022-02-18 14:09] LABS: ALBUMIN 2.8 g/dL (3.2-5.0); POTASSIUM 4.1 mmol/l (3.5-5.1); TOTAL PROTEIN 6.3 g/dL (6.3-8.2)
[2022-02-18 14:10] LABS: CREATININE 4.2 mg/dL (0.5-1.0)
[2022-02-18 16:03] LABS: URINE BILIRUBIN - DIPSTICK SMALL (NEGATIVE); URINE BLOOD DIPSTICK LARGE (NEGATIVE); URINE GLUCOSE - DIPSTICK NEGATIVE (NEGATIVE); URINE KETONE TRACE mg/dL (NEGATIVE); URINE LEUK ESTERASE TRACE (NEGATIVE); URINE PROTEIN - DIPSTICK 100 mg/dL (NEG-TRACE); URINE UROBILINOGEN - DIPSTICK 0.2 E.U./dL (0.2)
[2022-02-18 16:04] LABS: URINE COLOR AMBER; URINE NITRITE - DIPSTICK POSITIVE (Negative)
[2022-02-18 16:10] LABS: URINE AMORPH SEDIMENT MANY hpf (NONE-FEW); URINE SQUAMOUS EPITHELIAL CELL FEW EPI/hpf (0-FEW)
--- NOTE | 2022-02-20 10:00 | NUR ---
Preliminary blood culture results of 2/2 sets growing gram negative rods called to nurse Abbi, at [facility]. Will follow-up tomorrow with final blood culture results.
== END 2022-02-18 17:50 ==
LOC: ED 12:24
PROVIDERS: Nurse Practitioner
DX: G45.9 Transient cerebral ischemic attack, unspecified (principal); R79.89 Other specified abnormal findings of blood chemistry; I13.2 Hypertensive heart and chronic kidney disease with heart failure and with stage 5 chronic kidney disease, or end stage renal disease; I50.9 Heart failure, unspecified; E11.22 Type 2 diabetes mellitus with diabetic chronic kidney disease; N18.6 End stage renal disease; E11.40 Type 2 diabetes mellitus with diabetic neuropathy, unspecified; L03.116 Cellulitis of left lower limb; L03.115 Cellulitis of right lower limb; S91.301A Unspecified open wound, right foot, initial encounter; L98.9 Disorder of the skin and subcutaneous tissue, unspecified; I25.10 Atherosclerotic heart disease of native coronary artery without angina pectoris; X58.XXXA Exposure to other specified factors, initial encounter; Z99.2 Dependence on renal dialysis; Z95.1 Presence of aortocoronary bypass graft; Z59.1 Inadequate housing; Z20.822 Contact with and (suspected) exposure to COVID-19
CPT/HCPCS: J0692